=== PATIENT | male | born 1940 | race Caucasian/White ===

== ENCOUNTER 2019-06-24 12:40 | Emergency (ER) | payer MEDICARE ==
--- NOTE | 2019-06-24 13:05 | ED Physician Documentation ---
PD HPI CHEST PAIN - Stated complaint Stated Complaint: CP - Chief complaint Chief Complaint: Resp - History obtained from History obtained from: Patient - History of Present Illness Timing - onset: How many weeks ago ('few') Timing - details: Gradual onset Quality: Pain Location: Right chest Associated symptoms: Shortness of air, Cough. 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 He is also been feeling short of breath to the point that he has to stop in mid sentence and take a breath. He denies any history of emphysema. He has been coughing but not bringing up any phlegm and he has not really felt any nasal congestion or fever. He did have an odd metallic taste that started in his mouth prior to the onset of the symptoms and it has continued. Denies history of diabetes or heart disease. No palpitations. He has not felt dizzy or nauseous. Denies any peripheral edema no history of DVT. Review of Systems Constitutional: denies: Fever Ears: reports: Loss of hearing (Wears hearing aids). denies: Ear pain Nose: denies: Rhinorrhea / runny nose, Congestion Throat: denies: Sore throat Cardiac: reports: Chest pain / pressure (Lateral right chest wall with breathing, coughing or sneezing). denies: Palpitations Respiratory: reports: Dyspnea, Cough GI: denies: Abdominal Pain, Nausea, Vomiting : denies: Dysuria Skin: denies: Rash Neurologic: denies: Generalized weakness, Near syncope PD PAST MEDICAL HISTORY - Present Medications Home Medications: Ambulatory Orders Medication Instructions Recorded Confirmed Amoxicillin 875 mg PO BID #20 tablet 06/24/19 Azithromycin [Zithromax] 250 mg PO DAILY #6 tablet 06/24/19 Finasteride 0 mg PO DAILY 06/24/19 06/24/19 Pravastatin [Pravachol] 0 mg PO DAILY 06/24/19 06/24/19 - Allergies Allergies/Adverse Reactions: Allergies Allergy/AdvReac Type Severity Reaction Status Date / Time No Known Drug Allergies Allergy Verified 06/24/19 12:56 PD ED PE NORMAL - Vitals Vital signs reviewed: Yes - General General: Alert and oriented X 3, No acute distress, Well developed/nourished - HEENT HEENT: Atraumatic, PERRL, EOMI, Moist mucous membranes, Pharynx benign - Neck Neck: Supple, no meningeal sign, No adenopathy, No bruit - Cardiac Cardiac: RRR, Strong equal pulses. No: No murmur (There is a soft I/ Systolic murmur heard at the left upper sternal border when he is lying down. It is not audible when he sitting.) - Respiratory Respiratory: No respiratory distress, Other (Diminished breath sounds at the right base posteriorly.) - Abdomen Abdomen: Normal bowel sounds, Soft - Derm Derm: Normal color, Warm and dry, No rash - Neuro Neuro: Alert and oriented X 3, biology intern 2-12 intact, No motor deficit, No sensory deficit, Normal speech - Psych Psych: Normal mood, Normal affect Results - Vitals Vitals: Vital Signs - 24 hr 06/24/19 06/24/19 06/24/19 12:45 14:31 16:15 Temperature 36.5 C Heart Rate 88 86 84 Respiratory 25 H 22 21 Rate Blood Pressure 191/103 H 137/98 H 145/89 H O2 Saturation 96 100 99 Oxygen O2 Source Room air - EKG (time done) 1245 Rate: Rate (enter#) (93) Rhythm: NSR Intervals: Normal DC. No: Wide QRS Ischemia: Normal ST segments Compare to prior EKG: Old EKG unavailable - Labs Labs: Laboratory Tests 06/24/19 06/24/19 06/24/19 12:56 12:56 12:56 WBC 6.9 RBC 4.35 L Hgb 13.1 L Hct 38.0 L MCV 87.4 MCH 30.1 MCHC 34.5 RDW 13.0 Plt Count 473 H MPV 9.8 Neut # (Auto) 4.7 Lymph # (Auto) 1.3 L Fergus # (Auto) 0.6 Eos # (Auto) 0.2 Baso # (Auto) 0.1 Absolute Nucleated RBC 0.00 Nucleated RBC % 0.0 D-Dimer Sodium 137 Potassium 3.6 Chloride 102 Carbon Dioxide 23 Anion Gap 12.0 BUN 18 Creatinine 1.0 Estimated GFR (MDRD) 72 L Glucose 105 H Calcium 9.2 Total Bilirubin 0.5 AST 23 ALT 29 Alkaline Phosphatase 51 Troponin I High Sens < 2.3 L Total Protein 7.8 Albumin 3.9 Globulin 3.9 Albumin/Globulin Ratio 1.0 Lipase 31 06/24/19 12:56 WBC RBC Hgb Hct MCV MCH MCHC RDW Plt Count MPV Neut # (Auto) Lymph # (Auto) Fergus # (Auto) Eos # (Auto) Baso # (Auto) Absolute Nucleated RBC Nucleated RBC % D-Dimer 765.6 H Sodium Potassium Chloride Carbon Dioxide Anion Gap BUN Creatinine Estimated GFR (MDRD) Glucose Calcium Total Bilirubin AST ALT Alkaline Phosphatase Troponin I High Sens Total Protein Albumin Globulin Albumin/Globulin Ratio Lipase PD MEDICAL DECISION MAKING - ED course Complexity details: d/w patient ED course: Patient declined an injection of Toradol for the pain. His chest x-ray showed what I thought could be a right middle lobe consolidation but the radiologist feels this is more of an effusion. D-dimer was greater than 700. His white blood cell count was normal BUN and creatinine essentially normal. A CT Angiogram of the chest was obtained to rule out pulmonary embolus. There is no PE. He has a little patch of pneumonia and a 1.1 cm rightThey plan to follow him up in their office lower node that could be reactive and a pleural effusion was noted. The patient will be treated with Zithromax and amoxicillin. I discussed with his primary care provider the findings and and probable repeat CT scan in about a month. Plan was discussed and agreed upon with the patient. Departure - Departure Disposition: 01 Home, Self Care Clinical Impression: Pleural effusion Pneumonia Qualifiers: Pneumonia type: due to unspecified organism Laterality: right Lung location: un specified part of lung Qualified Code(s): J18.9 - Pneumonia, unspecified organism Condition: Good Instructions: ED Pneumonia Adult Follow-Up: Charan Joaquin MD [Primary Care Provider] - Prescriptions: Amoxicillin 875 mg PO BID #20 tablet Azithromycin [Zithromax] 250 mg PO DAILY #6 tablet Comments: Take the Zithromax Z-Carlton as instructed for 5 days. Use the amoxicillin twice a day for 10 days. Get probiotics from the pharmacy and take those while you are on the antibiotics and for 2 weeks after. Michael evans Faina-Mend is a good recommendation is you can find it, otherwise any probiotic is better than none. You should be contacted by your primary care provider and he will follow you up in the office to follow-up on how you are doing with the pneumonia treatment and the fluid that that was found on the CT scan around the lung.
[2019-06-24 13:31] LABS: BASOPHILS # (AUTO) 0.1 10^3/uL (0.0-0.1); BASOPHILS % (AUTO) 0.7 %; EOSINOPHILS # (AUTO) 0.2 10^3/uL (0.0-0.7); EOSINOPHILS % (AUTO) 2.8 %; HGB - HEMOGLOBIN 13.1 g/dL (14.0-18.0); LYMPHOCYTES # (AUTO) 1.3 10^3/uL (1.5-3.5); LYMPHOCYTES % (AUTO) 19.6 %; MEAN CORPUSCULAR HEMOGLOBIN 30.1 pg (27.0-31.0); MEAN CORPUSCULAR HGB CONC 34.5 g/dL (32.0-36.0); MEAN CORPUSCULAR VOLUME 87.4 fL (80.0-94.0); MEAN PLATELET VOLUME 9.8 fL (7.4-11.4); MONOCYTES # (AUTO) 0.6 10^3/uL (0.0-1.0); MONOCYTES % (AUTO) 8.3 %; NEUTROPHILS # (AUTO) 4.7 10^3/uL (1.5-6.6); PLT - PLATELET COUNT 473 10^3/uL (130-450); RED BLOOD COUNT 4.35 10^6/uL (4.70-6.10); WHITE BLOOD COUNT 6.9 x10^3/uL (4.8-10.8)
[2019-06-24 13:32] LABS: ALBUMIN 3.9 g/dL (3.2-5.5); BILIRUBIN,TOTAL 0.5 mg/dL (0.2-1.0); CALCIUM 9.2 mg/dL (8.5-10.3); TOTAL PROTEIN 7.8 g/dL (6.7-8.2)
--- NOTE | 2019-06-24 14:07 | XRAY Report ---
Reason: cough Procedure Date: 06/24/2019 Accession Number: [id number] / [id number] Procedure: XR - Chest 2 View X-Ray CPT Code: 07381 Final Report FULL RESULT: EXAM: CHEST RADIOGRAPHY EXAM DATE: 06/24/2019 01:49 PM. CLINICAL HISTORY: Pain, short of breath, cough. COMPARISON: None. TECHNIQUE: 2 views. FINDINGS: Lungs/Pleura: Small bilateral pleural effusions, right more than left. No definite acute infiltrate, consolidation, or pneumothorax. Mediastinum: Borderline cardiomegaly. Tortuous aorta. Mild vascular fullness. Other: Degenerative changes. IMPRESSION: Cardiovascular fullness with small pleural effusions, possible mild congestive failure. RADIA
[2019-06-24] MEDS ORDERED: IOVERSOL 320 100 ML VIAL IVP ONE ×2 (14:38→15:32)
--- NOTE | 2019-06-24 16:10 | CT Report ---
Reason: chest pain Procedure Date: 06/24/2019 Accession Number: [id number] / [id number] Procedure: CT - CHEST W CPT Code: Final Report FULL RESULT: EXAM: CT CHEST EXAM DATE: 06/24/2019 03:29 PM. CLINICAL HISTORY: Chest pain. COMPARISONS: CHEST 2 VIEW 06/24/2019 1:42 PM. TECHNIQUE: Routine helical CT imaging was performed through the chest. IV contrast: 80 cc of Optiray 320. Reconstructions: Coronal and sagittal. In accordance with CT protocol optimization, one or more of the following dose reduction techniques were utilized for this exam: automated exposure control, adjustment of mA and/or KV based on patient size, or use of iterative reconstructive technique. FINDINGS: Lungs/Pleura: Right lower lobe volume loss with air bronchograms noted. No edema.Small right pleural effusion. No pneumothorax.No endobronchial lesions.Airway is patent. Mild bronchial wall thickening. No endobronchial lesion. No concerning lung mass or nodule. Mediastinum: No thoracic aortic aneurysm or dissection. No mediastinal hematoma. No significant cardiac enlargement. Small hernia. No pericardial effusion. 1.1 cm right hilar node noted on image 4, 46. Extensive three-vessel coronary artery calcifications are noted. Bones: Unremarkable. Visualized Abdomen: Unremarkable. Other: Homogeneous enhancement of the thyroid gland. No thyroid nodule or mass. No supraclavicular or axillary lymphadenopathy identified. IMPRESSION: 1. Small right pleural effusion. No pneumothorax. No significant left pleural effusion. 2. Probable right lower lobe atelectasis. Superimposed right lower lobe infiltrates difficult to exclude. Given history of cough, superimposed pneumonia is suspected. 3. No cardiac enlargement. Mildly prominent 1.1 cm right hilar node may be reactive. No pericardial effusion. 4. No central pulmonary emboli. RADIA
[2019-06-24 16:18] VITALS: BP 145/89
== END 2019-06-24 17:28 | disposition home or self-care (01) ==
LOC: ED 12:40
DX: J90 Pleural effusion, not elsewhere classified (principal); J18.9 Pneumonia, unspecified organism; R79.89 Other specified abnormal findings of blood chemistry; R01.1 Cardiac murmur, unspecified
CPT/HCPCS: 36415; 71046; 71260; 80053; 83690; 84484; 85025; 85379; 93005; 99284; Q9967

== ENCOUNTER 2020-04-15 12:15 | Emergency (ER) | payer MEDICARE ==
[2020-04-15 12:23] VITALS: BP 172/91
--- NOTE | 2020-04-15 12:41 | ED Physician Documentation ---
History of Present Illness - Stated complaint Stated Complaint: FB LT EAR - Chief complaint Chief Complaint: Heent - History obtained from History obtained from: Patient - History of Present Illness Timing: Unknown - Additonal information Additional information: 79-year-old male presents to the emergency department for evaluation of foreign body in the left ear. He reports that he was being seen this morning to have his hearing aids checked and upon exam they noted that he had the To the hearing aid lodged firmly in his ear canal. He was advised to come to the ER to have the hearing aid removed. He denies any pain or fevers or ear drainage. He does admit to using Q-tips daily to cleanse his ears. Review of Systems Constitutional: reports: Reviewed and negative Eyes: reports: Reviewed and negative Ears: reports: Foreign body. denies: Loss of hearing, Ear pain, Drainage/discharge, Tinnitus/ringing Nose: reports: Reviewed and negative Throat: reports: Reviewed and negative Cardiac: reports: Reviewed and negative Respiratory: reports: Reviewed and negative GI: reports: Reviewed and negative : reports: Reviewed and negative Skin: reports: Reviewed and negative PD PAST MEDICAL HISTORY - Past Medical History Cardiovascular: High cholesterol : Benign prostate hypertrophy - Present Medications Home Medications: Ambulatory Orders Medication Instructions Recorded Confirmed Amoxicillin 875 mg PO BID #20 tablet 06/24/19 Azithromycin [Zithromax] 250 mg PO DAILY #6 tablet 06/24/19 Finasteride 0 mg PO DAILY 06/24/19 06/24/19 Pravastatin [Pravachol] 0 mg PO DAILY 06/24/19 06/24/19 Ofloxacin [Ocuflox] 5 ml OP BID #1 bottle 04/15/20 - Allergies Allergies/Adverse Reactions: Allergies Allergy/AdvReac Type Severity Reaction Status Date / Time No Known Drug Allergies Allergy Verified 04/15/20 12:23 - Social History Does the pt smoke?: No Smoking Status: Never smoker Does the pt drink ETOH?: No Does the pt have substance abuse?: No - Immunizations Immunizations: TDAP >10years/unknown PD ED PE EXPANDED - HEENT HEENT: Other (Circular cone shaped device lodged firmly in the distal left ear canal. No erythema swelling or drainage of the ear canal. No tenderness on exam. ) Results - Vitals Vitals: Vital Signs - 24 hr 04/15/20 12:20 Temperature 36.9 C Heart Rate 99 Respiratory 17 Rate Blood Pressure 172/91 H O2 Saturation 98 Oxygen O2 Source Room air Procedures - FB removal FB location: Ear Removal method: Foreceps FB removal aftercare: No complications, Patient tolerated well, Removed successfully PD MEDICAL DECISION MAKING - ED course Complexity details: re-evaluated patient, d/w patient ED course: 79-year-old male presents the emergency department with a foreign body lodged in his left ear canal that stems from a hearing aid. I was able to remove the foreign body using alligator forceps at the bedside. Upon reexam there is a minor amount of bleeding and trauma to the ear canal. I will place this gentleman on ofloxacin eardrops to prevent infection emergent return precautions otherwise discussed. Departure - Departure Disposition: 01 Home, Self Care Clinical Impression: Foreign body in ear Qualifiers: Encounter type: initial encounter Laterality: left Qualified Code(s): T16.2XXA - Foreign body in left ear, initial encounter Condition: Stable Record reviewed to determine appropriate education?: Yes Prescriptions: Ofloxacin [Ocuflox] 5 ml OP BID #1 bottle Comments: Hola we were able to remove the foreign body from ear canal. However there is a little bit of trauma and abrasion to the ear canal. I would like you to place the ofloxacin drops twice daily in your ear for the next 5 to 7 days. Return to the emergency department if you have fevers ear pain or drainage or any concerns of infection.
== END 2020-04-15 13:11 | disposition home or self-care (01) ==
LOC: ED 12:15
DX: T16.2XXA Foreign body in left ear, initial encounter (principal); S00.412A Abrasion of left ear, initial encounter; X58.XXXA Exposure to other specified factors, initial encounter
CPT/HCPCS: 69200; 99281; 99282